=== PATIENT | male | born 1990 | race Caucasian/White ===

== ENCOUNTER 2021-09-28 21:21 | Emergency (ER) | payer BC ==
[~2021-09-28] VITALS: Ht 185.4 cm; Wt 79.4 kg
--- NOTE | 2021-09-28 22:03 | NUR ---
URINE COLLECTED AND SENT TO LAB
--- NOTE | 2021-09-28 22:04 | NUR ---
BIBSELF C/O 08/27 LEFT TESTICULAR PAIN X2 DAYS "FEELS SWOLLEN". PT A/OX4. TOLERATING R/A WELL WITH NO SOB. PT AMBULATORY WITH STEADY GAIT. SAFETY MEASURES IN PLACE.
--- NOTE | 2021-09-28 22:08 | NUR ---
THOMAS MAHAN AT PT'S BEDSIDE FOR TESTICULAR EXAM WITH MALE DIRECTOR PART.
[2021-09-28] MEDS ORDERED: ACETAMINOPHEN ES 500 MG TABLET ONE (22:26)
[2021-09-28] MEDS ORDERED: KETOROLAC TROMETHAMINE INJ 30 MG/ML VIAL ONE (22:26)
[2021-09-28] MEDS ORDERED: KETOROLAC TROMETHAMINE INJ 30 MG/ML VIAL IM ONE (22:30)
[2021-09-28] MEDS ORDERED: ACETAMINOPHEN 325 MG TABLET PO ONE (22:30)
[2021-09-28] MEDS ORDERED: DOXY100T2 PO ×2 (22:32→23:12)
--- NOTE | 2021-09-28 22:39 | NUR ---
[employer] C[employer] AT BEDSIDE
[2021-09-28 22:52] LABS: BILIRUBIN,URINE NEGATIVE (NEGATIVE); COLOR,URINE YELLOW (YELLOW); LEUKOCYTE ESTERASE ,URINE SMALL (NEGATIVE); NITRITE, URINE NEGATIVE (NEGATIVE); PH,URINE 6.5 (5.0-8.0); PROTEIN,URINE NEGATIVE (NEGATIVE); UGLUCOSE NEGATIVE (NEGATIVE)
[2021-09-28] MEDS ORDERED: LIDOCAINE 1% INJ 50 ML MDV IJ ONE (23:28)
[2021-09-28] MEDS ORDERED: CEFTRIAXONE 500 MG VIAL ONE (23:28)
[2021-09-28] MEDS ORDERED: CEFTRIAXONE 500 MG VIAL IM ONE (23:30)
--- NOTE | 2021-09-29 00:58 | NUR ---
Patient discharged to home in stable condition. Written and verbal after care instructions given. Patient verbalizes understanding of instruction.
[2021-09-29 00:59] VITALS: BP 156/103
[2021-09-29 07:48] LABS: BACTERIA,URINE Few /HPF (None Seen); RBC,URINE 0-2 /HPF (0-2); SQUAMOUS EPITHELIAL CELL,UR None Seen /HPF (None Seen)
== END 2021-09-29 01:00 | disposition home or self-care (01) ==
LOC: EDBD 21:27 → ER 21:27
DX: N45.1 Epididymitis (principal)
CPT/HCPCS: 99284; 96372 ×2; 76870; 87086; 81001; 87491; 87591; J3490; J0696; J1885